=== PATIENT | male | born 1990 | race Caucasian/White ===

== ENCOUNTER 2020-05-31 12:12 | Emergency (ER) | payer SELFPAY ==
[~2020-05-31] VITALS: Ht 190.5 cm; Wt 89.0 kg
[~2020-05-31 12:12] MED LIST: LIDOcaine 1% W/epiNEPHrine 1:100,000 20ml vial ONE
[2020-05-31 12:19] VITALS: BP 108/65
[2020-05-31] MEDS ORDERED: LIDOcaine 1% w/epiNEPHrine 1:200,000 30ml vial IJ ONE (13:15)
[2020-05-31] MEDS ORDERED: LIDOcaine 1% W/epiNEPHrine 1:200,000 10ml vial IJ ONE (13:15)
[2020-05-31] MEDS ORDERED: TETanus/Pertussis (Acell)/Diphther VAC/PF (Tdap-Adult) 0.5ml syringe IMVAC ONE (13:15)
== END 2020-05-31 14:14 | disposition home or self-care (01) ==
LOC: ER 12:13
DX: S69.91XA Unspecified injury of right wrist, hand and finger(s), initial encounter (principal); X58.XXXA Exposure to other specified factors, initial encounter; Y93.89 Activity, other specified; Y92.89 Other specified places as the place of occurrence of the external cause; Y99.8 Other external cause status
CPT/HCPCS: 10120; 73140; 90471; 90715; 99284; 99285

== ENCOUNTER 2021-11-18 15:26 | Emergency (ER) | payer MEDICAID ==
[~2021-11-18] VITALS: Ht 190.5 cm; Wt 86.4 kg
[2021-11-18 16:13] VITALS: BP 130/86
== END 2021-11-18 20:05 | disposition left against medical advice (07) ==
LOC: ER 15:28
DX: M54.9 Dorsalgia, unspecified (principal); Z53.21 Procedure and treatment not carried out due to patient leaving prior to being seen by health care provider

== ENCOUNTER 2022-05-19 12:34 | Emergency (ER) | payer MEDICAID ==
[~2022-05-19] VITALS: Ht 190.5 cm; Wt 80.0 kg
[2022-05-19 15:23] LABS: BASOPHILS # (AUTO) 0.2 X10'3 (0-0.2); BASOPHILS % (AUTO) 1.2 % (0-1); EOSINOPHILS # (AUTO) 0.3 X10'3 (0-0.9); EOSINOPHILS % (AUTO) 2.1 % (0-6); HEMATOCRIT 42.1 % (42.0-52.0); HEMOGLOBIN 13.7 g/dl (14.0-17.9); LYMPHOCYTES # (AUTO) 3.2 X10'3 (1.1-4.8); LYMPHOCYTES % (AUTO) 23.6 % (21-51); MEAN CORPUSCULAR HEMOGLOBIN 27.5 PG (27.0-31.0); MEAN CORPUSCULAR HGB CONC 32.4 g/dL (33.0-36.5); MEAN CORPUSCULAR VOLUME 84.7 FL (78-98); MEAN PLATELET VOLUME 7.2 FL (7.4-10.4); MONOCYTES # (AUTO) 1.5 X10'3 (0-0.9); MONOCYTES % (AUTO) 11.3 % (2-12); NEUTROPHILS # (AUTO) 8.4 X10'3 (1.8-7.7); NEUTROPHILS % (AUTO) 61.8 % (42-75); PLATELET COUNT 453 X10'3 (140-440); RED BLOOD COUNT 4.97 X10'6 (4.70-6.10); RED CELL DISTRIBUTION WIDTH 16.5 % (11.5-14.5); WHITE BLOOD COUNT 13.5 X10'3 (4.5-11.0)
[2022-05-19] MEDS: normal saline 1000ML IV soln IVB ONE (15:31)
[2022-05-19] MEDS: thiamine 100mg/ml 2ml inj. IV ONE (15:31)
[2022-05-19] MEDS: folic acid 1mg/0.2ml inj IV ONE (15:34)
[2022-05-19 15:40] LABS: ALANINE AMINOTRANSFERASE 35 U/L (12-78); ALBUMIN 3.9 G/DL (3.4-5.0); ALBUMIN/GLOBULIN RATIO 0.9 (1.1-1.5); ALKALINE PHOSPHATASE 64 IU/L (46-116); ANION GAP 7 (8-16); ASPARTATE AMINO TRANSFERASE 23 U/L (10-37); BILIRUBIN,TOTAL 0.2 MG/DL (0.1-1.0); BLOOD UREA NITROGEN 8 MG/DL (7-18); BUN/CREATININE RATIO 11.9 (5.4-32.0); CALCIUM 9.5 MG/DL (8.5-10.1); CHLORIDE 108 MMOL/L (99-107); CREATININE 0.67 MG/DL (0.60-1.10); GLUCOSE 92 MG/DL (70-104); POTASSIUM 4.2 MMOL/L (3.5-5.1); SODIUM 143 MMOL/L (135-145); TOTAL CARBON DIOXIDE 28.3 MMOL/L (24-32); TOTAL PROTEIN 8.2 G/DL (6.4-8.2); eGFR > 90 ML/MIN
[2022-05-19 15:48] LABS: C-REACTIVE PROTEIN 1.14 MG/DL (0.0-0.5); MAGNESIUM 2.2 MG/DL (1.5-2.4)
[2022-05-19 15:50] LABS: ETHANOL < 0.010 GM/DL (0.0-0.010)
[2022-05-19 16:01] LABS: CLARITY,URINE CLEAR (Clear); COLOR,URINE YELLOW (Yellow); GLUCOSE, URINE NEGATIVE (Neg); KETONES,URINE NEGATIVE (Neg); LEUKOCYTE ESTERASE ,URINE NEGATIVE (Neg); NITRITES, URINE NEGATIVE (Neg); OCCULT BLOOD,URINE NEGATIVE (Neg); PH,URINE 7.5 (4.8-8.0); PROTEIN,URINE NEGATIVE (Neg); UROBILINOGEN,URINE 0.2 E.U/dL (0.2-1.0)
[2022-05-19 16:03] LABS: UA COLLECTION TYPE CLN CATCH MIDSTREAM
[2022-05-19 16:08] LABS: URINE AMPHETAMINE SCREEN NEGATIVE (Neg); URINE BARBITUATE SCREEN NEGATIVE (Neg); URINE BENZODIAZEPINES SCREEN NEGATIVE (Neg); URINE CANNABINOID SCREEN NEGATIVE (Neg); URINE COCAINE SCREEN NEGATIVE (Neg); URINE METHADONE SCREEN NEGATIVE (Neg); URINE OPIATE SCREEN NEGATIVE (Neg); URINE PHENCYCLIDINE SCREEN NEGATIVE (Neg)
[2022-05-19] MEDS: acetaminophen 325mg tablet PO ONE (16:20)
[2022-05-19 16:25] LABS: HIV ANTIBODY 1&2 RAPID NON-REACTIVE (Neg)
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
[2022-05-19] MEDS ORDERED: ketorolac trometh. 30mg/ml inj. IV ONE (20:25)
[2022-05-19] MEDS: orphenadrine citrate 60mg/2ml inj. IM ONE (20:35)
[2022-05-19] MEDS: ketorolac tromethamine 15mg/ml inj. IV ONE (20:35)
--- NOTE | 2022-05-19 21:17 | NUR ---
Spoke with Tiffanie RN at [facility] gave hand off report. Pt will go to L5 unit room 508A. Address is [facility] [address], [place] [id number] Call facility at [phone] once transportation picks up patient.
--- NOTE | 2022-05-19 22:44 | NUR ---
DWAIN with mother Kirstie at [phone] with updates on pt being transferred to [facility], provided #
--- NOTE | 2022-05-19 22:45 | NUR ---
handoff report with Essie at [facility]. All questions answered.
[2022-05-19 23:20] VITALS: BP 120/73
== END 2022-05-19 23:23 | disposition short-term general hospital (02) ==
LOC: ER 12:35
DX: R53.1 Weakness (principal); Z20.822 Contact with and (suspected) exposure to COVID-19; R13.10 Dysphagia, unspecified; M54.50 Low back pain, unspecified; Z98.890 Other specified postprocedural states
CPT/HCPCS: 36415; 70450; 71045; 80053; 80305; 80320; 81003; 82140; 82607; 82948; 83735; 84443; 85025; 85651; 86140; 86592; 86703; 87635; 96361; 96372; 96374; 96375; 99285; C9803; J1885; J2360; J3411; J3490; J7030

== ENCOUNTER 2022-06-29 19:50 | Emergency (ER) | payer MEDICAID ==
[~2022-06-29] VITALS: Ht 190.5 cm; Wt 86.4 kg
[2022-06-29 22:47] LABS: ALANINE AMINOTRANSFERASE 26 U/L (12-78); ALBUMIN 3.4 G/DL (3.4-5.0); ALBUMIN/GLOBULIN RATIO 0.8 (1.1-1.5); ALKALINE PHOSPHATASE 83 IU/L (46-116); ANION GAP 10 (8-16); ASPARTATE AMINO TRANSFERASE 17 U/L (10-37); BILIRUBIN,TOTAL 0.1 MG/DL (0.1-1.0); BLOOD UREA NITROGEN 13 MG/DL (7-18); BUN/CREATININE RATIO 16.7 (5.4-32.0); CHLORIDE 108 MMOL/L (99-107); CREATININE 0.78 MG/DL (0.60-1.10); GLUCOSE 117 MG/DL (70-104); POTASSIUM 4.1 MMOL/L (3.5-5.1); SODIUM 144 MMOL/L (135-145); TOTAL CARBON DIOXIDE 25.7 MMOL/L (24-32); TOTAL PROTEIN 7.7 G/DL (6.4-8.2); eGFR > 90 ML/MIN
[2022-06-29] MEDS ORDERED: prednisone 10mg tablet PO ONE (22:50)
[2022-06-29] MEDS ORDERED: PRED10TA PO (22:51)
[2022-06-29] MEDS ORDERED: predniSONE 5mg tablet PO ONE (22:55)
[2022-06-29 23:08] LABS: HEMATOCRIT 38.5 % (42.0-52.0); HEMOGLOBIN 12.1 g/dl (14.0-17.9); MEAN CORPUSCULAR HGB CONC 31.4 g/dL (33.0-36.5); MEAN CORPUSCULAR VOLUME 82.8 FL (78-98); MEAN PLATELET VOLUME 7.3 FL (7.4-10.4); PLATELET COUNT 813 X10'3 (140-440); RED BLOOD COUNT 4.65 X10'6 (4.70-6.10); RED CELL DISTRIBUTION WIDTH 16.5 % (11.5-14.5); WHITE BLOOD COUNT 10.8 X10'3 (4.5-11.0)
[2022-06-29 23:32] LABS: CLARITY,URINE CLEAR (Clear); COLOR,URINE YELLOW (Yellow); GLUCOSE, URINE NEGATIVE (Neg); KETONES,URINE NEGATIVE (Neg); LEUKOCYTE ESTERASE ,URINE NEGATIVE (Neg); NITRITES, URINE NEGATIVE (Neg); OCCULT BLOOD,URINE NEGATIVE (Neg); PROTEIN,URINE NEGATIVE (Neg); UROBILINOGEN,URINE 0.2 E.U/dL (0.2-1.0)
[2022-06-29 23:34] LABS: UA COLLECTION TYPE URINAL
[2022-06-30 02:09] LABS: TOTAL CELLS COUNTED 100
[2022-06-30 02:12] LABS: ANISOCYTOSIS 1+; PLATELET ESTIMATE INCREASED
[2022-06-30 02:14] LABS: BURR CELLS FEW; ELLIPTOCYTES FEW
[2022-06-30 02:15] LABS: SCHISTOCYTES FEW
[2022-06-30 02:16] LABS: SMUDGE CELLS 1+; TARGET CELLS FEW
--- NOTE | 2022-06-30 08:20 | NUR ---
gave report to sweta Srivastava at [facility]. Transport at 0900 to [place]
[2022-06-30] MEDS ORDERED: HYDROcodone/acetaminophen 5mg/325mg tablet PO ONE ×2 (10:25→15:55)
[2022-06-30 17:56] VITALS: BP 135/87
== END 2022-06-30 17:59 | disposition short-term general hospital (02) ==
LOC: ER 19:51
DX: G70.00 Myasthenia gravis without (acute) exacerbation (principal); Z20.822 Contact with and (suspected) exposure to COVID-19; D75.839 Thrombocytosis, unspecified; Z98.890 Other specified postprocedural states
CPT/HCPCS: 36415; 80053; 81003; 85007; 85025; 87502; 87503; 87635; 93005; 94150; 99285; C9803; J7512

== ENCOUNTER 2022-07-29 13:53 | Emergency (ER) | payer MEDICAID ==
[~2022-07-29] VITALS: Ht 190.5 cm; Wt 86.0 kg
[~2022-07-29 13:53] MED LIST changes: -LIDOcaine 1% W/epiNEPHrine 1:100,000 20ml vial ONE; +PRED10TA PO
[2022-07-29] MEDS ORDERED: normal saline 1000ML IV soln IVB ONE (14:25)
[2022-07-29 15:21] LABS: MEAN PLATELET VOLUME 7.2 FL (7.4-10.4); NEUTROPHILS # (AUTO) 6.4 X10'3 (1.8-7.7)
[2022-07-29 15:23] LABS: BASOPHILS # (AUTO) 0.2 X10'3 (0-0.2); BASOPHILS % (AUTO) 1.3 % (0-1); EOSINOPHILS # (AUTO) 0.2 X10'3 (0-0.9); EOSINOPHILS % (AUTO) 1.4 % (0-6); HEMATOCRIT 42.3 % (42.0-52.0); HEMOGLOBIN 13.4 g/dl (14.0-17.9); LYMPHOCYTES # (AUTO) 4.3 X10'3 (1.1-4.8); LYMPHOCYTES % (AUTO) 36.5 % (21-51); MEAN CORPUSCULAR HEMOGLOBIN 26.1 PG (27.0-31.0); MEAN CORPUSCULAR HGB CONC 31.8 g/dL (33.0-36.5); MEAN CORPUSCULAR VOLUME 82.1 FL (78-98); MONOCYTES # (AUTO) 0.7 X10'3 (0-0.9); MONOCYTES % (AUTO) 6.3 % (2-12); NEUTROPHILS % (AUTO) 54.5 % (42-75); PLATELET COUNT 786 X10'3 (140-440); RED BLOOD COUNT 5.15 X10'6 (4.70-6.10); RED CELL DISTRIBUTION WIDTH 17.4 % (11.5-14.5); WHITE BLOOD COUNT 11.7 X10'3 (4.5-11.0)
[2022-07-29 15:33] VITALS: BP 137/94
[2022-07-29 15:35] LABS: ALANINE AMINOTRANSFERASE 26 U/L (12-78); ALBUMIN 4.2 G/DL (3.4-5.0); ALBUMIN/GLOBULIN RATIO 0.8 (1.1-1.5); ALKALINE PHOSPHATASE 89 IU/L (46-116); ANION GAP 5 (8-16); ASPARTATE AMINO TRANSFERASE 21 U/L (10-37); BILIRUBIN,TOTAL 0.3 MG/DL (0.1-1.0); BLOOD UREA NITROGEN 23 MG/DL (7-18); BUN/CREATININE RATIO 29.1 (5.4-32.0); CALCIUM 9.4 MG/DL (8.5-10.1); CHLORIDE 105 MMOL/L (99-107); CREATININE 0.79 MG/DL (0.60-1.10); D-DIMER < 0.19 MG/L FEU (0-0.50); GLUCOSE 103 MG/DL (70-104); POTASSIUM 3.5 MMOL/L (3.5-5.1); SODIUM 139 MMOL/L (135-145); TOTAL CARBON DIOXIDE 29.2 MMOL/L (24-32); TOTAL PROTEIN 9.2 G/DL (6.4-8.2); eGFR > 90 ML/MIN
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
== END 2022-07-29 17:03 | disposition home or self-care (01) ==
LOC: ER 13:53
DX: Z76.5 Malingerer [conscious simulation] (principal); Z98.890 Other specified postprocedural states
CPT/HCPCS: 36415; 71045; 80053; 84145; 85025; 85379; 96360; 96361; 99284; J7030